=== PATIENT | male | born 1995 | race African-American/Black ===

== ENCOUNTER 2019-11-01 10:46 | Emergency (ER) | payer SELFPAY ==
[~2019-11-01] VITALS: Ht 170.2 cm; Wt 54.4 kg
[2019-11-01 10:55] VITALS: BP 109/64
--- NOTE | 2019-11-01 10:59 | NUR ---
24 Y/O MALE AMBULATED FROM [facility] C/O INGESTING "POISION" LIQUID. STATES HE HAS DONE DRUGS, UNABLE TO STATES WHAT DRUG. PT UNABLE TO STATE WHEN HE INGESTED LIQUID. ABD SOFT, ROUND, NONTENDER. DENIES CHEST PAIN. PLACED ON MONITOR. MEDHX: UNOBTAINABLE ALLERGIES: UNOBTAINABLE
--- NOTE | 2019-11-01 11:01 | NUR ---
DR CORRAL AT BEDSIDE EXAMINING PT
[2019-11-01] MEDS ORDERED: ONDANSETRON 4 MG ODT PO ONE (11:05)
--- NOTE | 2019-11-01 11:29 | NUR ---
PT GIVEN HOMELESS FOOD PACK UPON REQUEST.
--- NOTE | 2019-11-01 11:30 | NUR ---
PT DENIES NAUSEA/VOMITING AT THIS TIME
[2019-11-01 11:32] VITALS: BP 111/66
== END 2019-11-01 11:31 | disposition home or self-care (01) ==
LOC: MED 10:46
DX: R11.2 Nausea with vomiting, unspecified (principal); J45.909 Unspecified asthma, uncomplicated; I10 Essential (primary) hypertension; F17.200 Nicotine dependence, unspecified, uncomplicated
CPT/HCPCS: 99283; Q0162

== ENCOUNTER 2019-11-14 02:30 | Emergency (ER) | payer SELFPAY ==
[~2019-11-14] VITALS: Ht 172.7 cm; Wt 74.8 kg
[2019-11-14 02:35] VITALS: BP 118/72
--- NOTE | 2019-11-14 02:42 | NUR ---
24 YO MALE BIB SELF FOR C/C OF SORE ON THE MIDDLE OF BACK THAT APPEARED A FEW DAYS AGO. PT STATES THAT IT IS VERY ITCHY AND CAUSING HIM 8/10 BURNING/ACHING PAIN. PT STATES THAT THE BACK OF HIS HEAD IS ALSO ITCHY. PT HAS TWO OTHER SORES ON BACK WELL. PT DENIES TAKING ANY MEDICATION FOR THE PAIN/ITCHINESS. PT STATES HE IS HOMELESS AND LIVING IN HIS CAR. DENIES ALCOHOL AND DRUG USE. DENIES FEVER, COUGH, SOB, OR TRAVEL OUTS[place] OF [place]. SAFETY MEASURES IMPLEMENTED. BED LAMIN AND IN LOWEST POSITION. SIDE RAILS X1. [facility] MED HX: HTN NO RX
--- NOTE | 2019-11-14 02:50 | NUR ---
PT GIVEN WATER AND A SANDWHICH
--- NOTE | 2019-11-14 03:21 | NUR ---
Dr. Sainz examining patient.
[2019-11-14 03:33] VITALS: BP 118/72
--- NOTE | 2019-11-14 03:33 | NUR ---
Patient discharged with v/s stable. Written and verbal after care instructions given and explained. Patient verbalized understanding. Ambulatory with steady gait. All questions addressed prior to discharge. Advised to follow up with PMD.
== END 2019-11-14 03:33 | disposition home or self-care (01) ==
LOC: MED 02:30
DX: L29.9 Pruritus, unspecified (principal); J45.909 Unspecified asthma, uncomplicated; I10 Essential (primary) hypertension
CPT/HCPCS: 99282; Q0163

== ENCOUNTER 2019-11-23 17:38 | Emergency (ER) | payer SELFPAY ==
[~2019-11-23] VITALS: Ht 160 cm; Wt 69.2 kg
[2019-11-23 17:47] VITALS: BP 103/59
--- NOTE | 2019-11-23 17:56 | NUR ---
PT AMB TO BED 11.
--- NOTE | 2019-11-23 18:12 | NUR ---
pt presented in ED c/o itching to back of head and back. Pt states the itching has been happening for a while. Pt denies taking any medication. Pt denies alcohol or substance use. Pt states he is currently living [facility]. Observed scabbing on back of pt head and upper back. Pt resting in bed , side rails X1.
--- NOTE | 2019-11-23 18:29 | NUR ---
dr. cao evaluating pt at bedside.
[2019-11-23 18:46] VITALS: BP 103/59
--- NOTE | 2019-11-23 18:47 | NUR ---
Patient discharged with v/s stable. Written and verbal after care instructions given and explained. Patient alert, oriented and verbalized understanding of instructions. Ambulatory with steady gait. All questions addressed prior to discharge. ID band removed. Patient advised to follow up with PMD. Rx of Hydrocortisone and Benadryl given. Patient educated on indication of medication including possible reaction and side effects. Opportunity to ask questions provided and answered. Pt provided with sandwich and juice.
== END 2019-11-23 18:47 | disposition home or self-care (01) ==
LOC: MED 17:38
DX: R21 Rash and other nonspecific skin eruption (principal); L29.9 Pruritus, unspecified; I10 Essential (primary) hypertension; J45.909 Unspecified asthma, uncomplicated
CPT/HCPCS: 99282

== ENCOUNTER 2019-12-09 14:08 | Emergency (ER) | payer SELFPAY ==
[~2019-12-09] VITALS: Ht 180.3 cm; Wt 69.4 kg
[2019-12-09 14:22] VITALS: BP 123/70
[2019-12-09] MEDS ORDERED: KETOROLAC 60 MG/2 ML VIAL IM ONE (15:05)
[2019-12-09] MEDS ORDERED: ONDANSETRON 4 MG ODT PO ONE (15:05)
[2019-12-09 15:06] LABS: BASOPHILS % (AUTO) 0.4 % (0.0-2.0); EOSINOPHILS # (AUTO) 0.2 K/uL (0-0.4); EOSINOPHILS % (AUTO) 2.6 % (0.0-4.0); HEMATOCRIT 35.9 % (36-52); HEMOGLOBIN 11.2 g/dL (12.0-18.0); LYMPHOCYTES % (AUTO) 21.9 % (20.5-51.1); MEAN CORPUSCULAR HEMOGLOBIN 21 pg (27-31); MEAN CORPUSCULAR HGB CONC 31 g/dL (33-37); MEAN CORPUSCULAR VOLUME 67.7 fL (80-94); MONOCYTES # (AUTO) 0.9 K/uL (0.8-1.0); MONOCYTES % (AUTO) 9.7 % (1.7-9.3); NEUTROPHILS # (AUTO) 5.9 K/uL (1.8-7.7); NEUTROPHILS % (AUTO) 65.4 % (42.2-75.2); PLATELET COUNT (AUTO) 114 K/uL (140-450); RED CELL DISTRIBUTION WIDTH 16.7 % (11.6-13.7)
[2019-12-09 15:26] LABS: ALBUMIN 3.6 g/dL (3.4-5.0); CARBON DIOXIDE 28.1 mmol/L (21-32); CREATININE 0.8 mg/dL (0.6-1.3); TOTAL BILIRUBIN 0.6 mg/dL (0.0-1.0)
[2019-12-09 15:39] LABS: ANION GAP 11.2 (8-16); POTASSIUM 3.3 mmol/L (3.5-5.1)
[2019-12-09 15:39] LABS: BARBITURATE, URINE NEGATIVE ng/ml (NEG <=200); BENZODIAZEPINE, URINE NEGATIVE ng/mL (NEG <=200); COCAINE, URINE NEGATIVE ng/mL (NEG <=300)
[2019-12-09 15:40] LABS: CANNABINOID, URINE POSITIVE ng/mL (NEG <=50); OPIATE, URINE NEGATIVE ng/mL (NEG <=2000); PHENCYCLIDINE SCREEN,URINE NEGATIVE ng/mL (NEG <=25)
[2019-12-09 17:07] VITALS: BP 124/63
== END 2019-12-09 17:07 | disposition home or self-care (01) ==
LOC: EEVIPCON 14:08 → MED 14:08
DX: R11.2 Nausea with vomiting, unspecified (principal); R19.7 Diarrhea, unspecified; R50.9 Fever, unspecified; R10.9 Unspecified abdominal pain; J45.909 Unspecified asthma, uncomplicated
CPT/HCPCS: 36415; 80053; 80305; 83690; 85025; 87804; 96372; 99283; C9803; J1885; Q0162; U0003